=== PATIENT | female | born 1955 | race Caucasian/White ===

== ENCOUNTER 2017-06-20 07:37 | Emergency (ER) | payer BC ==
[~2017-06-20] VITALS: Ht 162.6 cm; Wt 60.0 kg
[~2017-06-20 07:37] MED LIST: ASPI325T PO; CLOP75 PO; NITR0.4S SL; TAB-TAB PO; TOPR25TA2 PO; ZOCO80TA PO
[2017-06-20 07:40] VITALS: BP 132/59; PULSE 63; RESP 18; TEMP 97.4; O2SAT 100
[2017-06-20 07:45] VITALS: BP 116/53; PULSE 103; RESP 16; O2SAT 95
[2017-06-20] MEDS ORDERED: SODIUM CHLOR 0.9% 1000 ML INJ 1,000 ML IV ONE (07:50)
--- NOTE | 2017-06-20 07:55 | PD ---
HPI Chief Complaint: Headache Time Seen by Provider: 07:50 Travel History International Travel<30 days: No Contact w/Intl Traveler<30days: No Traveled to known affect area: No History of Present Illness HPI 61-year-old female patient presents to the ER today complaining of headaches that started when she woke up at 4:30 this morning, currently a 7 out of 10, with nausea. She denies any vomiting, stiff neck, fevers, or other symptoms. She states that the light does bother her. She has had some similar headaches according to her in the past, apparently has a migraine history, but they state that it has been long while since she's had a headache like this. Modifying Factors: None Associated Signs & Symptoms: Headaches, nausea, photophobia Risk Factors: Previous history of headaches PFSH Past Medical History Hx Anticoagulant Therapy: Yes (plavix) Arthritis: Yes Blood Disorders: No Heart Rhythm Problems: No Cancer: No Cardiovascular Problems: No High Cholesterol: No Chest Pain: Yes Congestive Heart Failure: No Cerebrovascular Accident: No Diminished Hearing: No Endocrine: No Genitourinary: No Headaches: No Hypertension: No Immune Disorder: No Musculoskeletal: No Neurologic: No Psychiatric: No Reproductive: No Respiratory: No Migraines: Yes Myocardial Infarction: No Seizures: No ?: Not Menopausal: Yes Past Surgical History Abdominal Surgery: No Cardiac Surgery: No Ear Surgery: No Endocrine Surgery: No Eye Surgery: No Genitourinary Surgery: No Gynecologic Surgery: No Oral Surgery: No Thoracic Surgery: No Other Surgery: Yes (BREAST AUGMENTATION) Social History Alcohol Use: No Tobacco Use: No Substance Use: No Allergies-Medications (Allergen,Severity, Reaction): Coded Allergies: No Known Allergies (Verified Adverse Reaction, Unknown, 06/20/17) Reported Meds & Prescriptions Reported Meds & Active Scripts Active Reported Simvastatin 80 Mg Tab 80 Mg PO DAILY Plavix (Clopidogrel Bisulfate) 75 Mg Tab 75 Mg PO DAILY Review of Systems Except as stated in HPI: all other systems reviewed are Neg Physical Exam Narrative GENERAL: Well-developed elderly white female in moderate distress. Awake and oriented 3. SKIN: Focused skin assessment warm/dry. HEAD: Atraumatic. Normocephalic. EYES: Pupils are small, equal and round reactive to light bilaterally. No scleral icterus. No injection or drainage. ENT: No nasal bleeding or discharge. Mucous membranes pink and moist. NECK: Trachea midline. No JVD. Supple. CARDIOVASCULAR: Regular rate and rhythm. No murmur appreciated. RESPIRATORY: No accessory muscle use. Clear to auscultation. Breath sounds equal bilaterally. GASTROINTESTINAL: Abdomen soft, non-tender, nondistended. Hepatic and splenic margins not palpable. MUSCULOSKELETAL: No obvious deformities. No clubbing. No cyanosis. No edema. NEUROLOGICAL: Awake and alert. No obvious cranial nerve deficits. Motor grossly within normal limits. Normal speech. PSYCHIATRIC: Appropriate mood and affect; insight and judgment normal. Data Data Last Documented VS Vital Signs Date Time Temp Pulse Resp B/P (MAP) Pulse Ox O2 Delivery O2 Flow Rate FiO2 06/20/17 09:00 64 16 103/49 (67) 97 06/20/17 07:40 97.4 Orders Orders Complete Blood Count With Diff (06/20/17 07:50) Comprehensive Metabolic Panel (06/20/17 07:50) Westergren Sedimentation Rate (06/20/17 07:50) C-Reactive Protein (Crp) (06/20/17 07:50) Prothrombin Time / Inr (Pt) (06/20/17 07:50) Act Partial Throm Time (Ptt) (06/20/17 07:50) Ct Brain W/O Iv Contrast(Rout) (06/20/17 07:50) Ecg Monitoring (06/20/17 07:50) Iv Access Insert/Monitor (06/20/17 07:50) Oximetry (06/20/17 07:50) Sodium Chloride 0.9% Flush (Ns Flush) (06/20/17 08:00) Diphenhydramine Inj (Benadryl Inj) (06/20/17 08:00) Metoclopramide Inj (Reglan Inj) (06/20/17 08:00) Sodium Chlor 0.9% 1000 Ml Inj (Ns 1000 M (06/20/17 07:50) Labs Laboratory Tests Test 06/20/17 07:55 White Blood Count 7.8 TH/MM3 Red Blood Count 4.38 MIL/MM3 Hemoglobin 12.3 GM/DL Hematocrit 38.1 % Mean Corpuscular Volume 87.2 FL Mean Corpuscular Hemoglobin 28.0 PG Mean Corpuscular Hemoglobin Concent 32.2 % Red Cell Distribution Width 11.9 % Platelet Count 260 TH/MM3 Mean Platelet Volume 8.2 FL Neutrophils (%) (Auto) 75.4 % Lymphocytes (%) (Auto) 17.0 % Monocytes (%) (Auto) 6.4 % Eosinophils (%) (Auto) 0.8 % Basophils (%) (Auto) 0.4 % Neutrophils # (Auto) 5.9 TH/MM3 Lymphocytes # (Auto) 1.3 TH/MM3 Monocytes # (Auto) 0.5 TH/MM3 Eosinophils # (Auto) 0.1 TH/MM3 Basophils # (Auto) 0.0 TH/MM3 CBC Comment DIFF FINAL Differential Comment Erythrocyte Sedimentation Rate 3 mm/hr Prothrombin Time 10.6 SEC Prothromb Time International Ratio 1.0 RATIO Activated Partial Thromboplast Time 24.0 SEC Blood Urea Nitrogen 20 MG/DL Creatinine 0.60 MG/DL Random Glucose 169 MG/DL Total Protein 6.5 GM/DL Albumin 3.7 GM/DL Calcium Level 8.4 MG/DL Alkaline Phosphatase 53 U/L Aspartate Amino Transf (AST/SGOT) 20 U/L Alanine Aminotransferase (ALT/SGPT) 24 U/L Total Bilirubin 0.4 MG/DL Sodium Level 140 MEQ/L Potassium Level 3.7 MEQ/L Chloride Level 105 MEQ/L Carbon Dioxide Level 26.9 MEQ/L Anion Gap 8 MEQ/L Estimat Glomerular Filtration Rate 101 ML/MIN C-Reactive Protein LESS THAN 0.29 MG/DL MDM Medical Decision Making Medical Screen Exam Complete: Yes Emergency Medical Condition: Yes Medical Record Reviewed: Yes Interpretation(s) Laboratory Tests Test 06/20/17 07:55 Neutrophils (%) (Auto) 75.4 % (16.0-70.0) Activated Partial Thromboplast Time 24.0 SEC (24.3-30.1) Blood Urea Nitrogen 20 MG/DL (7-18) Random Glucose 169 MG/DL (74-106) Calcium Level 8.4 MG/DL (8.5-10.1) Last [address] 06/20/17 0750 Signed Impressions: Service Date/Time: Tuesday, June 20, 2017 08:31 - CONCLUSION: No acute disease. Kalyan Boateng MD Differential Diagnosis Headache: Migraine headache versus tension headache versus viral illness versus ICH Narrative Course CAT scan did not show any signs of acute intracranial processes and lab work is fairly unremarkable. Patient was given IV fluids, Reglan, and Benadryl. On reevaluation at 10 AM, she is feeling much improved, headache is now 2 out 10, neck is supple, and I do not suspect meningitis in this case, she is not having fevers and she's had similar headaches in the past. I suspect that this is a migraine headache. At this point, my plan would be to release her with follow- up to primary care physician with further symptomatic relief for headaches. Return for any worsening in symptoms as needed. The plan has been discussed with her and she states understanding. Diagnosis Primary Impression: Headache Med/Other Pt SpecificInfo: Prescription(s) given Scripts Promethazine (Phenergan) 25 Mg Tablet 25 MG PO Q6H Y for NAUSEA OR VOMITING, #7 TAB 0 Refills Prov: Harrison Shea MD 06/20/17 Disposition: 01 DISCHARGE HOME Condition: Stable Harrison Shea MD Jun 20, 2017 07:55
[2017-06-20] MEDS ORDERED: METOCLOPRAMIDE HCL 10 MG/2 ML VIAL IVP ONE (08:00)
[2017-06-20] MEDS ORDERED: diphenhydrAMINE HCL 50 MG/ML VIAL IVP ONE (08:00)
[2017-06-20] MEDS ORDERED: SODIUM CHLORIDE 0.9% FLUSH 10 ML FLUSH IVF PRN (08:00)
[2017-06-20 08:10] LABS: AUTOMATED NEUTROPHIL # 5.9 TH/MM3 (1.8-7.7); BASOPHIL % 0.4 % (0.0-2.0); EOSINOPHIL # 0.1 TH/MM3 (0-0.4); EOSINOPHIL % 0.8 % (0.0-4.0); HEMATOCRIT 38.1 % (35.0-46.0); HEMOGLOBIN 12.3 GM/DL (11.6-15.3); LYMPHOCYTE # 1.3 TH/MM3 (1.0-4.8); MEAN CELL VOLUME 87.2 FL (80.0-100.0); MEAN CORPUSCULAR HGB CONC 32.2 % (32.0-36.0); MEAN PLATELET VOLUME 8.2 FL (7.0-11.0); MONO % 6.4 % (0.0-8.0); MONOCYTE # 0.5 TH/MM3 (0-0.9); NEUT % 75.4 % (16.0-70.0); PLATELET COUNT 260 TH/MM3 (150-450); RED BLOOD COUNT 4.38 MIL/MM3 (4.00-5.30); RED CELL DISTRIBUTION WIDTH 11.9 % (11.6-17.2); WHITE BLOOD COUNT 7.8 TH/MM3 (4.0-11.0)
[2017-06-20] MEDS ORDERED: SIMV80TA PO (08:15)
[2017-06-20] MEDS ORDERED: PLAV75TA29 PO (08:15)
[2017-06-20 08:19] LABS: CHLORIDE 105 MEQ/L (98-107); SODIUM (NA) 140 MEQ/L (136-145)
[2017-06-20 08:22] LABS: ALBUMIN 3.7 GM/DL (3.4-5.0); BICARBONATE 26.9 MEQ/L (21.0-32.0); CALCIUM 8.4 MG/DL (8.5-10.1); GLUCOSE,RANDOM 169 MG/DL (74-106); PROTHROMBIN TIME - PATIENT 10.6 SEC (9.8-11.6)
[2017-06-20 08:23] LABS: BLOOD UREA NITROGEN 20 MG/DL (7-18)
[2017-06-20 08:25] LABS: ALT (GPT) 24 U/L (10-53)
[2017-06-20 08:26] LABS: AST (GOT) 20 U/L (15-37); GLOMERULAR FILTRATION RATE 101 ML/MIN (>89)
[2017-06-20 08:27] LABS: TOTAL BILIRUBIN ADULT 0.4 MG/DL (0.2-1.0); TOTAL PROTEIN 6.5 GM/DL (6.4-8.2)
[2017-06-20 08:28] LABS: ALKALINE PHOSPHATASE 53 U/L (45-117)
--- NOTE | 2017-06-20 08:48 | RADRPT ---
EXAM DATE/TIME: 06/20/2017 08:31 [facility] COMPARISON: No previous studies available for comparison. INDICATIONS : Headache with nausea and photophobia. RADIATION DOSE: 59.08 CTDIvol (mGy) MEDICAL HISTORY : Anticoagulant therapy. SURGICAL HISTORY : None. ENCOUNTER: Initial ACUITY: 1 day PAIN SCALE: 7/10 LOCATION: cranial TECHNIQUE: Multiple contiguous axial images were obtained of the head. Using automated exposure control and adj ustment of the mA and/or kV according to patient size, radiation dose was kept as low as reasonably a chievable to obtain optimal diagnostic quality images. DICOM format image data is available electro nically for review and comparison. FINDINGS: CEREBRUM: The ventricles are normal for age. No evidence of midline shift, mass lesion, hemorrhage or acute in farction. No extra-axial fluid collections are seen. POSTERIOR FOSSA: The cerebellum and brainstem are intact. The 4th ventricle is midline. The cerebellopontine angle i s unremarkable. EXTRACRANIAL: The visualized portion of the orbits is intact. SKULL: The calvaria is intact. No evidence of skull fracture. CONCLUSION: No acute disease. Kalyan Boateng MD on June 20, 2017 at 8:45 Board Certified Radiologist. This report was verified electronically.
[2017-06-20 09:00] VITALS: BP 103/49; PULSE 64; RESP 16; O2SAT 97
[2017-06-20 10:08] LABS: C-REACTIVE PROTEIN LESS THAN 0.29 MG/DL (0.00-0.30)
[2017-06-20] MEDS ORDERED: PROM25TA10 PO (10:15)
== END 2017-06-20 10:22 | disposition home or self-care (01) ==
LOC: PHED 07:37
DX: R51 Headache (principal); R11.0 Nausea
CPT/HCPCS: 70450; 80053; 85025; 85610; 85652; 85730; 86140; 96361; 96374; 96375; 99285; J1200; J2765; J7030